=== PATIENT | female | born 1965 | race Caucasian/White ===

== ENCOUNTER 2020-01-03 01:38 | Outpatient (CLI) | payer BC, SELFPAY ==
[2020-01-03 18:20] LABS: SARS-CoV-2 RNA PCR Negative
== END 2020-01-03 01:39 | disposition home or self-care (01) ==
LOC: ANHCOVIDDT 01:38
PROVIDERS: PCP Family Medicine; Visit Provider Internal Medicine Gastroenterology
DX: Z01.812 Encounter for preprocedural laboratory examination (principal); Z11.59 Encounter for screening for other viral diseases
CPT/HCPCS: 87635; C9803; U0003

== ENCOUNTER 2020-01-05 01:13 | Day surgery (SDC) | payer BC, SELFPAY ==
[2019-12-29 12:28] VITALS: BMI 32.8
[2020-01-05 06:47] VITALS: BP 127/76; PULSE 84; RESP 18; TEMP 37.1; O2SAT 100
[2020-01-05] MEDS: LACTATED RINGERS 1,000 ML 150 ML IV CONT (07:21)
--- NOTE | 2020-01-05 07:41 | WPDANESEPPF ---
Anes - Initial Pre Proc Eval Procedure: Operation Date: 01/05/20 08:00 Proposed Procedures p Screening Colonoscopy - Harman Barr MD Date/Time: 01/05/20 07:41 Surgeon: Harman Barr MD Pre Op Diagnosis: Neoplasm Screening Patient Data Age: 54 Gender: F Height: 5 ft 7 in Weight: 98.1 kg Last Vital Signs Temp 98.7 F 01/05/20 06:47 Pulse 84 01/05/20 06:47 Resp 18 01/05/20 06:47 BP 127/76 01/05/20 06:47 Pulse Ox 100 01/05/20 06:47 Allergies Allergy/AdvReac Type Severity Reaction Status Date / Time codeine Allergy Unknown Swelling Verified 01/05/20 06:45 of Lip/Tongue/Throat meperidine Allergy Unknown Seizure Verified 01/05/20 06:45 Home Medications Medication Instructions Recorded Confirmed Type Bifidobacterium infantis [Align] 10.5 mg PO DAILY 12/29/19 01/05/20 History brimonidine 1 drp RIGHTEYE BID 12/29/19 01/05/20 History dorzolamide-timolol 1 drp OPHTHALMIC (EYE) BID 12/29/19 01/05/20 History duloxetine 30 mg PO BID 12/29/19 01/05/20 History eletriptan 40 mg PO DAILY 12/29/19 01/05/20 History erenumab-aooe [Aimovig 140 mg SUBCUT MONTHLY 12/29/19 01/05/20 History Autoinjector] ketorolac 1 drp OPHTHALMIC (EYE) BID 12/29/19 01/05/20 History meloxicam 15 mg PO DAILY 12/29/19 01/05/20 History methylphenidate HCl 40 mg PO BID 12/29/19 01/05/20 History topiramate 100 mg PO DAILY 12/29/19 01/05/20 History Patient hx anesthesia problems: none Family hx anesthesia problems: none PMFSH Past Medical History Medical History (Updated 01/05/20 @ 07:41 by Vasquez Garza MD) Hypothyroid Migraine Anes - Eval Final PreProcedure Day of Procedure 01/05/20 07:41 Patient weight: obese Heart: regular rate and rhythm Lungs: clear to auscultation Airway: Mallampati scale class III Neurological: alert and oriented Last oral intake: >/= 8 hours ASA classification: II Anesthetic plan: proceed Anesthesia type and monitoring: general GIVS and standard monitoring Informed Consent: The patient's anesthetic plan and its attendant risks and benefits were discussed with the patient/family/POA. Questions were solicited and answers provided to the satisfaction of the patient/family/POA.
--- NOTE | 2020-01-05 07:44 | WPDGICN ---
Assessment and Plan Assessment and plan (1) Colonoscopy planned: Status: Acute Assessment and Plan: Plan is for screening colonoscopy. High-fiber diet advised diarrhea stools appear to be consistent with irritable bowel syndrome. Further recommendations will be given after endoscopy. (2) Encounter for screening for colorectal malignant neoplasm: Code(s): Z12.11 - Encounter for screening for malignant neoplasm of colon; Z12.12 - Encounter for screening for malignant neoplasm of rectum Status: Acute GI Consult Note Consult date/time: 01/05/20 07:44 HPI: Daniela Shaw is a 54 year old female Seen in evaluation at the request of WILLEM Arce. Patient presents for neoplasia screening colonoscopy. Patient's current weight appetite bowel movements are normal. She denies abdominal pain. She denies any bleeding. She does note occasional diarrhea stools. Family history is significant her daughter has celiac disease. There is no family history of colon or rectal disease. Patient's past medical history is significant for psoriasis purposes. She has a very distant history of a seizure. Review of Systems Review of Systems: All systems reviewed & are unremarkable except as noted in HPI and below PMFSH Past Medical History Medical History Hypothyroid Migraine Meds Home Medications and Allergies Home Medications Medication Instructions Recorded Confirmed Type Bifidobacterium infantis [Align] 10.5 mg PO DAILY 12/29/19 01/05/20 History brimonidine 1 drp RIGHTEYE BID 12/29/19 01/05/20 History dorzolamide-timolol 1 drp OPHTHALMIC (EYE) BID 12/29/19 01/05/20 History duloxetine 30 mg PO BID 12/29/19 01/05/20 History eletriptan 40 mg PO DAILY 12/29/19 01/05/20 History erenumab-aooe [Aimovig 140 mg SUBCUT MONTHLY 12/29/19 01/05/20 History Autoinjector] ketorolac 1 drp OPHTHALMIC (EYE) BID 12/29/19 01/05/20 History meloxicam 15 mg PO DAILY 12/29/19 01/05/20 History methylphenidate HCl 40 mg PO BID 12/29/19 01/05/20 History topiramate 100 mg PO DAILY 12/29/19 01/05/20 History Allergies Allergy/AdvReac Type Severity Reaction Status Date / Time codeine Allergy Unknown Swelling Verified 01/05/20 06:45 of Lip/Tongue/Throat meperidine Allergy Unknown Seizure Verified 01/05/20 06:45 Vital Signs Vital Signs - 24 hr 01/05/20 06:47 Temperature 98.7 F Pulse Rate 84 Respiratory Rate 18 Blood Pressure 127/76 Pulse Oximetry 100 Exam Narrative: Exam Narrative: Physical exam reveals patient to be alert. Somewhat anxious. Vital signs are stable. HEENT exam unremarkable. Lungs are clear to auscultation and percussion. Heart is without murmur or extra sounds. Abdominal exam bowel sounds are present soft nontender with no hepatosplenomegaly. Digital external rectal exam normal.
[2020-01-05] MEDS: SIMETHICONE ORAL SUSPENSION 20 MG/0.3 ML 30 ML BOTTLE 0.6 ML IRRIGATION (08:05)
[2020-01-05 08:10] VITALS: BP 114/72; PULSE 77; RESP 12; O2SAT 100
[2020-01-05 08:20] VITALS: BP 118/74; PULSE 76; RESP 16; O2SAT 100
[2020-01-05 08:30] VITALS: BP 127/91; PULSE 76; RESP 16; O2SAT 100
== END 2020-01-05 08:45 | disposition home or self-care (01) ==
PROVIDERS: PCP Family Medicine; Visit Provider Internal Medicine Gastroenterology
PROC: 0DJD8ZZ Inspection of Lower Intestinal Tract, Via Natural or Artificial Opening Endoscopic (ICD-10-PCS; CPT 45378; principal; 2020-01-05 08:00)
DX: Z12.11 Encounter for screening for malignant neoplasm of colon (principal); E03.9 Hypothyroidism, unspecified; E66.9 Obesity, unspecified; Z68.33 Body mass index [BMI] 33.0-33.9, adult
CPT/HCPCS: 45378; J2704; J7120

== ENCOUNTER 2020-08-21 21:51 | Observation (INO) | payer BC, SELFPAY ==
--- NOTE | ~2020-08-21 | XR_ITS ---
EXAMINATION: XR abdomen/kub 1V DATE: 08/22/2020 01:20 INDICATION: Left flank pain. Kidney stone. TECHNIQUE: A supine view of the abdomen on 2 radiographs was obtained. COMPARISON: CT dated 08/22/2020 and sacrum radiographs dated 05/12/2010 FINDINGS: 5 x 4 mm stone at the distal left ureter near the ureterovesicular junction. Surrounding unchanged pa ttern of phleboliths in the pelvis. A couple 2-3 mm stones project over both the left and right kidne ys, partially obscured by stool in the colon. Cholecystectomy clips in the right upper quadrant. No d ilated loops of bowel to suggest obstruction. IMPRESSION: 1. Bilateral nephrolithiasis with 5 performed with stone at the distalmost left ureter. Reviewed, dictated and finalized at location A.
--- NOTE | ~2020-08-21 | CT_ITS ---
EXAMINATION: CT abdomen pelvis wo con DATE: 08/22/2020 01:13 INDICATION: Left flank pain TECHNIQUE: Computed tomography (CT) of the abdomen and pelvis was performed without intravenous contr ast. The dose-length product was 1258.34 mGy-cm. Automated exposure control and iterative reconstruct ion technique were employed. COMPARISON: KUB dated 08/22/2020. FINDINGS: Lung bases are unremarkable. Heart size is normal. No significant pleural or pericardial ef fusion. No significant vascular abnormality. No lymphadenopathy. There is a 6.4 mm distal left ureteral stone near the UVJ with mild hydronephrosis. There are nonobst ructing bilateral renal stones. No right hydronephrosis. Nonobstructive bowel gas pattern. Small hiat al hernia. Status post cholecystectomy. Normal appendix. No free air or free fluid. No acute osseous abnormality. IMPRESSION: 1. Distal left ureteral stone near the UVJ measuring 6.4 mm with mild hydronephrosis. 2: Bilateral nephrolithiasis. Reviewed, dictated and finalized at location D. IMPRESSION: 1. Distal left ureteral stone near the UVJ measuring 6.4 mm with mild hydroneph rosis. 2: Bilateral nephrolithiasis.
--- NOTE | ~2020-08-21 | XR_ITS ---
EXAMINATION: XR retrograde pyelo w/stent LT EXAM DATE: 08/22/2020 14:59 INDICATION: Left distal ureteral stone, obstructive nephropathy. TECHNIQUE: Fluoroscopy used during XR retrograde pyelo w/stent LT performed by Dr. Bienvenido truong MD. Total fluoroscopic time of 0.3 minutes. A total of 8 images obtained for the exam. The D AP for this procedure was 331 radcm2. Cine run(s) available for review. FINDINGS: Left ureter was cannulated, injected. Mild left hydroureteronephrosis. A double-J stent wa s placed. Correlate with procedure note. IMPRESSION: Fluoroscopy used during XR retrograde pyelo w/stent LT. Reviewed, dictated and finalized at location A.
[2020-08-21 22:15] VITALS: BP 141/91; PULSE 87; RESP 16; TEMP 36.8; O2SAT 99
[2020-08-21 22:29] LABS: Basophils Percent Auto 0.4 % (0.2-1.2); Eosinophils Absolute Auto 0.2 K/mm3 (0-0.3); Eosinophils Percent Auto 1.9 % (0-4.4); Hematocrit 43.9 % (37.0-47.0); Hemoglobin 14.9 g/dL (12.0-15.0); Immature Granulocyte Absolute 0.06 K/mm3 (0.00-0.031); Immature Granulocyte Percent A 0.5 % (0-0.5); Lymphocytes Absolute Auto 1.59 K/mm3 (0.9-3.2); Mean Corpuscular HGB Conc 33.9 g/dl (32-36); Mean Corpuscular Hemoglobin 31.2 pg (26-34); Mean Platelet Volume 9.5 fl (7.4-10.4); Monocytes Absolute Auto 0.6 K/mm3 (0.1-0.6); Monocytes Percent Auto 5.4 % (2.6-8.5); Neutrophils Absolute Auto 8.9 K/mm3 (1.3-6.7); Neutrophils Percent Auto 77.8 % (45.5-73.1); Platelet Count Result 302 k/mm3 (150-375); Red Blood Count 4.77 M/mm3 (4.2-5.4); White Blood Count 11.4 K/mm3 (4.5-10.0)
[2020-08-21 22:45] LABS: Anion Gap 9 mmol/L (8-16); Blood Urea Nitrogen 21 mg/dL (7-17); Calcium 9.1 mg/dL (8.4-10.2); Carbon Dioxide 20 mmol/L (22-30); Chloride 112 mmol/L (98-107); Estimated CRCL calculation 73 ml/min; Estimated Glomerular Filt Rate > 60; Glucose 150 mg/dL (65-105); Potassium 3.8 mmol/L (3.4-5.0); Sodium 141 mmol/L (137-145)
[2020-08-21 22:59] LABS: Add Urine Microscopic? YES; Appearance Urine Cloudy (Clear); Bacteria Urine Trace /hpf; Bilirubin Urine 1+ (Negative); Blood Urine 3+ (Negative); Color Urine Yellow (Yellow); Glucose Urine UA Negative (Negative); Ketones Urine Negative (Negative); Leukocyte Esterase Ur Negative LEU/UL (Negative); Mucus Urine Rare /lpf; Nitrate Urine Negative (Negative); Protein Urine 1+ mg/dL (Negative); RBC Urine >75 /hpf (0-2); Squamous Epithelial Cell Urine Rare /hpf (Few); WBC Urine 0-3 /hpf
[2020-08-22] VITALS (17 sets, daily range): BP systolic 99–164; BP diastolic 53–105; PULSE 72–122; RESP 10–20; TEMP 36.3–37.2; O2SAT 95–100; BMI 35.4
--- NOTE | 2020-08-22 02:11 | ED.ABDPAIN ---
HPI - Abdominal Pain General Chief Complaint: Abdominal Pain Stated Complaint: Poss kidney stone-left flank pain Time Seen by Provider: 08/22/20 00:47 Source: patient and family Mode of arrival: ambulatory Limitations: no limitations History of Present Illness HPI narrative: 51-year-old with no major medical problems here with complaints of left-sided flank pain radiating into her left lower abdomen for past few days. Patient states that she went to urgent care few days ago was told he had kidney stones but no imaging was done. However this evening her pain intensified. She also complains of nausea and vomiting. She denies any fever or chills. Denies any blood in the urine. MD elicited complaint: abdominal pain (left lower abd) and flank pain (left) Pertinent past history: none Onset (ago): day(s) (2) Pain Consistency: constant Location: LLQ and L flank Severity: severe Quality: stabbing and aching Radiation: LLQ Relieving factors: nothing Related Data Home Medications Medication Instructions Recorded Confirmed Bifidobacterium infantis [Align] 10.5 mg PO DAILY 12/29/19 01/05/20 brimonidine 1 drp RIGHTEYE BID 12/29/19 01/05/20 dorzolamide-timolol 1 drp OPHTHALMIC (EYE) BID 12/29/19 01/05/20 duloxetine 30 mg PO BID 12/29/19 01/05/20 eletriptan 40 mg PO DAILY 12/29/19 01/05/20 erenumab-aooe [Aimovig 140 mg SUBCUT MONTHLY 12/29/19 01/05/20 Autoinjector] ketorolac 1 drp OPHTHALMIC (EYE) BID 12/29/19 01/05/20 meloxicam 15 mg PO DAILY 12/29/19 01/05/20 methylphenidate HCl 40 mg PO BID 12/29/19 01/05/20 topiramate 100 mg PO DAILY 12/29/19 01/05/20 Allergies Allergy/AdvReac Type Severity Reaction Status Date / Time codeine Allergy Unknown Swelling Verified 08/21/20 21:51 of Lip/Tongue/Throat meperidine Allergy Unknown Seizure Verified 08/21/20 21:51 Review of Systems Review of Systems: All systems reviewed & are unremarkable except as noted in HPI and below Constitutional: Constitutional: Reports no additional constitutional complaints Eyes: Eyes: Reports no additional eye complaints ENT: Reports system reviewed and no additional complaints, except as documented Cardiovascular: Cardiovascular: Reports no additional cardiovascular complaints Respiratory: Respiratory: Reports no additional respiratory complaints Gastrointestinal: Gastrointestinal: Reports as per HPI Genitourinary: Genitourinary: Reports as per HPI Musculoskeletal: Musculoskeletal: Reports no additional musculoskeletal complaints Integumentary/Breasts: Skin/Breast: Reports system reviewed and no additional complaints, except as docu PMFSH Past Medical History Medical History (Updated 08/22/20 @ 02:19 by Anibal Major MD) Hypothyroid Migraine Exam Narrative: Exam Narrative: GENERAL: Well-appearing, well-nourished, and in moderate distresssec to pain HEAD: Normocephalic, atraumatic. EYES: PERRLA and EOMI. ENT: Nares clear, no rhinorrhea or epistaxis. Mucous membranes moist. NECK: Supple. CHEST: Clear to auscultation. No respiratory distress. HEART: Regular rate and rhythm. No murmur heard. Normal peripheral pulses. ABDOMEN: Soft, mild tenderness in the left lower abd , nondistended, normal active bowel sounds. EXTREMITIES: Normal range of motion. No edema. SKIN: Warm, dry, no rash. NEURO: No focal deficits. Alert and oriented x3. PSYCH: Normal mood and affect. Course Course Emergency Course: Patient still continues to be in pain I have given an additional IV Dilaudid. I did discuss CT findings with the patient and the family. Will admit her for pain control and consult urology in the morning. Vital Signs Vital signs: Vital Signs Temperature 36.8 C 08/21/20 22:15 Pulse Rate 87 08/21/20 22:15 Respiratory Rate 16 08/21/20 22:15 Blood Pressure 141/91 H 08/21/20 22:15 Pulse Oximetry 99 08/21/20 22:15 Temperature 36.8 C 08/21/20 22:15 Pulse Rate 87 08/21/20 22:15 Respiratory Rate 16 07/25
[2020-08-22] MEDS: HYDROmorphone HCL INJ (*CRX) 1 MG/ML SYR IV PUSH (02:18)
[2020-08-22] MEDS: TAMSULOSIN HCL 0.4 MG CAPSULE PO (02:50)
[2020-08-22] MEDS: SODIUM CHLORIDE 0.9% IV 1,000 ML 125 ML IV CONT ×2 (03:14→11:34)
--- NOTE | 2020-08-22 03:31 | ADMGEN ---
This patient, Daniela Shaw, was admitted to 3 Med Surg Room 309-01. Patient/family oriented to hospital policies and general routines including ID bracelet, bed and alarms, visiting hours, pain management, procedures, bathroom and other care routines, personal items, smoking policy, room service/diet, and visiting hours. Information on how to activate the Rapid Response Team has been discussed. Patient/Family are encouraged to report perceived risks to care and to ask questions if they do not understand what they are told or what they should do.
--- NOTE | 2020-08-22 08:27 | WPDURCON ---
Assessment and Plan Assessment and plan (1) Ureterolithiasis: Code(s): N20.1 - Calculus of ureter Status: Acute Assessment and Plan: Plan for cystoscopy, left retrograde pyelogram, left ureteroscopy with stone extraction, possible holmium laser, stent placement. Discussed with patient. Risks and complications were discussed. Urology Consult Note HPI Date Seen: 08/22/20 Requesting Physician: Page Blas PA-C Primary Care Provider: Fabio Arvizu MD Consult Narrative Narrative: Daniela Shaw is a 55 year old female who presented to the emergency room with onset of left flank pain radiating to her left groin. Patient then any fevers. Patient denies any prior history of stones. Evaluation in emergency room revealed a 5-7 mm distal left ureteral calculus. Patient was admitted for pain control. Review of Systems Review of Systems: All systems reviewed & are unremarkable except as noted in HPI and below PMFSH Past Medical History Medical History Hypothyroid Migraine Family History Family History Mother Sarcoma Glaucoma Diabetes mellitus Osteoporosis Father Glaucoma Cerebrovascular accident Hypothyroidism Allergies Social History Social History Smoking status: Never smoker Alcohol intake: never Substance use: never Substance use type: does not use Spiritual care concerns: No Meds Home Medications and Allergies Home Medications Medication Instructions Recorded Confirmed Type Bifidobacterium infantis [Align] 10.5 mg PO DAILY 12/29/19 08/22/20 History brimonidine 1 drp RIGHTEYE BID 12/29/19 08/22/20 History dorzolamide-timolol 1 drp EACH EYE BID 12/29/19 08/22/20 History duloxetine 30 mg PO BID 12/29/19 08/22/20 History eletriptan 40 mg PO DAILY PRN 12/29/19 08/22/20 History erenumab-aooe [Aimovig 140 mg SUBCUT MONTHLY 12/29/19 08/22/20 History Autoinjector] ketorolac 1 drp RIGHT EYE BID 12/29/19 08/22/20 History meloxicam 15 mg PO DAILY PRN 12/29/19 08/22/20 History methylphenidate HCl 40 mg PO BID 12/29/19 08/22/20 History topiramate 100 mg PO DAILY 12/29/19 08/22/20 History topiramate 150 mg PO QPM 08/22/20 08/22/20 History Allergies Allergy/AdvReac Type Severity Reaction Status Date / Time codeine Allergy Unknown Swelling Verified 08/21/20 21:51 of Lip/Tongue/Throat meperidine Allergy Unknown Seizure Verified 08/21/20 21:51 Vital Signs Vital Signs - 24 hr 08/21/20 22:15 08/22/20 02:20 08/22/20 02:38 Temperature 36.8 C Pulse Rate 87 76 78 Respiratory Rate 16 18 18 Blood Pressure 141/91 H 154/92 H 164/93 H Pulse Oximetry 99 95 97 08/22/20 03:10 08/22/20 06:00 08/22/20 08:00 Temperature 36.4 C 36.3 C L 36.3 C L Pulse Rate 89 93 90 Respiratory Rate 16 16 16 Blood Pressure 150/89 H 136/72 130/69 Pulse Oximetry 100 100 100 Exam Const: General: cooperative Eyes: General: appearance normal, both eyes and all related structures Chest: Chest palpation & inspection: normal inspection of the chest Resp: Effort & Inspection: normal respiratory effort Cardio: Rate: regular rate GI: Inspection: normal to inspection Results Labs CBC & Chem 7: 08/21/20 22:24 08/21/20 22:24 Labs: Short CBC 08/21/20 Range/Units 22:24 WBC 11.4 H (4.5-10.0) K/mm3 Hgb 14.9 (12.0-15.0) g/dL Hct 43.9 (37.0-47.0) % Plt Count 302 (150-375) k/mm3 BMP 08/21/20 22:24 Sodium 141 Potassium 3.8 Chloride 112 H Carbon Dioxide 20 L BUN 21 H Creatinine 0.90 Glucose 150 H Calcium 9.1 Urine 08/21/20 Range/Units 22:44 Urine Color Yellow (Yellow) Urine Appearance Cloudy H (Clear) Urine pH 6.0 (5.0-9.0) Ur Specific [place] 1.020 (1.001-1.035) Urine Protein 1+ H (Negative) m
--- NOTE | 2020-08-22 08:31 | WPDHPUPDATE1 ---
History and Physical Update Update Date/Time: 08/22/20 08:31 History and Physical has been reviewed, including an updated exam of the patient. There are NO changes in the patient's condition. Risks, benefits, and alternatives have been discussed and questions answered. Patient agrees to proceed with procedure.
--- NOTE | 2020-08-22 09:40 | PM.IMHP ---
H&P: HPI History of Present Illness Date/Time: 08/22/20 09:40 Chief Complaint: Left flank pain Narrative: Date of admission: 08/22/2020 Date of service: 08/22/2020 Daniela Shaw is a 55-year-old female with a history of chronic migraines, IBS, and fibromyalgia who presented to the emergency department from home 08/22/2020 with complaints of left-sided flank pain. Her pain began 4 days prior with intermittent left-sided stabbing pain which radiated to the lower back. She had associated nausea. She denied any urinary symptoms. On 08/20, her pain worsened, therefore she went to the urgent care for evaluation. At that time, a UA was done and she was told she likely had a kidney stone based on microscopic hematuria. She was prescribed a muscle relaxer, which did improve her pain. However, last night, her pain intensified to 10/10, therefore she proceeded to the emergency department. She had 3 episodes of emesis at that time. Upon presentation to the ED, her vital signs were stable, she had mild leukocytosis, and urine showed 3+ blood. CT abdomen/pelvis showed distal left ureteral stone at the UVJ measuring 6.4 mm with mild hydronephrosis as well as bilateral nephrolithiasis. She is being admitted to the hospitalist service for further evaluation and management. At this time, her pain is improved at 2/10. She denies any nausea or vomiting. She denies dysuria, hematuria, urgency, or frequency. She is being admitted for observation. Supervising physician for this history and physical is Dr. Amador Pack. Review of Systems Review of Systems: Narrative: All systems reviewed with pertinent positives and negatives as per HPI. She endorses a mild headache, which she states is at baseline for her. She denies migraine. She complains of numbness and tingling in the hands and feet which is chronic and she relates this to Topamax use. She denies dizziness or lightheadedness. Denies feeling weak. She reports chronic fatigue and is in the process of being worked up for narcolepsy. Last bowel movement was yesterday. Denies diarrhea or constipation. No fevers or chills. Denies shortness breath, cough, or chest pain. [facility] Past Medical History Medical History (Updated 03/30/21 @ 10:09 by Page Blas PA-C) Bilateral nephrolithiasis Fibromyalgia Glaucoma Hypothyroid Irritable bowel syndrome Migraine Retinal detachment Surgical History Surgical History (Updated 08/22/20 @ 09:55 by Page Blas PA-C) History of detached retina repair History of glaucoma tube shunt procedure Family History Family History Mother Sarcoma Glaucoma Diabetes mellitus Osteoporosis Father Glaucoma Cerebrovascular accident Hypothyroidism Allergies Social History Social History (Updated 08/22/20 @ 10:02 by Page Blas PA-C) Social History: Ms. Shaw lives at home with her . She is independent in her ADLs. She works from home. Her PCP is Dr. Arvizu. She designates her as her surrogate decision maker and would like to be a full code. Smoking status: Never smoker Alcohol intake: never Substance use: never Substance use type: does not use Living arrangements: with family Spiritual care concerns: No Meds Home Medications and Allergies Home Medications Medication Instructions Recorded Confirmed Type Bifidobacterium infantis [Align] 10.5 mg PO DAILY 12/29/19 08/22/20 History brimonidine 1 drp RIGHTEYE BID 12/29/19 08/22/20 History dorzolamide-timolol 1 drp EACH EYE BID 12/29/19 08/22/20 History duloxetine 30 mg PO BID 12/29/19 08/22/20 History eletriptan 40 mg PO DAILY PRN 12/29/19 08/22/20 History erenumab-aooe [Aimovig 140 mg SUBCUT MONTHLY 12/29/19 08/22/20 History Autoinjector] ketorolac 1 drp RIGHT EYE BID 12/29/19 08/22/20 History meloxicam 15 mg PO DAILY PRN 12/29/19 08/22/20 History methylphenidate HCl 40
[2020-08-22 10:21] LABS: Hematocrit 40.5 % (37.0-47.0); Hemoglobin 13.7 g/dL (12.0-15.0); Mean Corpuscular HGB Conc 33.8 g/dl (32-36); Mean Corpuscular Hemoglobin 31.4 pg (26-34); Mean Corpuscular Volume 92.9 fl (80-100); Mean Platelet Volume 9.6 fl (7.4-10.4); Platelet Count Result 286 k/mm3 (150-375); Red Blood Count 4.36 M/mm3 (4.2-5.4); Red Cell Distribution Width 12.9 % (11.5-14.5); White Blood Count 10.7 K/mm3 (4.5-10.0)
[2020-08-22 10:33] LABS: Potassium 4.3 mmol/L (3.4-5.0)
[2020-08-22 10:35] LABS: Anion Gap 2 mmol/L (8-16); Blood Urea Nitrogen 16 mg/dL (7-17); Calcium 8.8 mg/dL (8.4-10.2); Carbon Dioxide 26 mmol/L (22-30); Chloride 114 mmol/L (98-107); Estimated CRCL calculation 73 ml/min; Estimated Glomerular Filt Rate > 60; Glucose 104 mg/dL (65-105); Sodium 142 mmol/L (137-145)
[2020-08-22] MEDS: BRIMONIDINE TARTRATE 0.2% OP SOLN 5 ML BTL 1 DROP RIGHT EYE ×2 (11:32→17:52)
[2020-08-22] MEDS: KETOROLAC 0.5% OP SOLN 5 ML BOTTLE 1 DROP RIGHT EYE ×2 (11:33→17:53)
[2020-08-22] MEDS: DORZOLAMIDE HCL 2% OPHTH DROPS 1 DROP EACH EYE (11:33)
[2020-08-22] MEDS: TIMOLOL MALEATE 0.5% OP SOLN 5 ML BOTTLE 1 DROP EACH EYE (11:34)
[2020-08-22] MEDS: HYDROmorphone HCL INJ (*CRX) 1 MG/ML SYR 0.5 MG IV PUSH (11:35)
--- NOTE | 2020-08-22 13:05 | PC.NURSE ---
1205MELANA MARIA HENSLEY CALLED TO TELL ME WHEN PT IS GOING TO OR. OFFERED REPORT, SHE REFUSED JUST SEND THE S BAR.
--- NOTE | 2020-08-22 13:25 | PC.NURSE ---
1250 GAVE VERBAL REPORT TO RONEN Mansfield ASKED IF ANY QUESTION STATES NO JUST SEND DOWN THE SBAR
--- NOTE | 2020-08-22 13:38 | PC.NURSE ---
9075 CALLED TO [facility] SPOKE WITH MARLO REGARDING 309 SHE WILL TELL RONEN THAT PT DOWN'T HAVE SZ AND SHE SHAKES UPON AWAKENING FROM ANESTHESIA FROM BEING COLD.
[2020-08-22] MEDS: LACTATED RINGERS 1,000 ML 30 ML IV CONT ×2 (14:05→15:26)
--- NOTE | 2020-08-22 14:07 | WPDANESEPPF ---
Anes - Initial Pre Proc Eval Procedure: Operation Date: 08/22/20 16:00 Proposed Procedures p Cystoscopy,Left Ureteroscopy,Left Retrograde Pyelogram,Left Stone Extraction,Possible Holmium Laser,Possible Stent Placement - Bienvenido Howe MD Date/Time: 08/22/20 14:07 Surgeon: Page Blas PA-C Pre Op Diagnosis: left ureterolithiasis Patient Data Age: 55 Gender: F Height: 5 ft 6 in Weight: 99.6 kg Last Vital Signs Temp 97.5 F L 08/22/20 12:12 Pulse 86 08/22/20 12:12 Resp 16 08/22/20 12:12 BP 132/77 08/22/20 12:12 Pulse Ox 100 08/22/20 12:12 Allergies Allergy/AdvReac Type Severity Reaction Status Date / Time codeine Allergy Unknown Swelling Verified 08/21/20 21:51 of Lip/Tongue/Throat meperidine Allergy Unknown Seizure Verified 08/21/20 21:51 Home Medications Medication Instructions Recorded Confirmed Type Bifidobacterium infantis [Align] 10.5 mg PO DAILY 12/29/19 08/22/20 History brimonidine 1 drp RIGHTEYE BID 12/29/19 08/22/20 History dorzolamide-timolol 1 drp EACH EYE BID 12/29/19 08/22/20 History duloxetine 30 mg PO BID 12/29/19 08/22/20 History eletriptan 40 mg PO DAILY PRN 12/29/19 08/22/20 History erenumab-aooe [Aimovig 140 mg SUBCUT MONTHLY 12/29/19 08/22/20 History Autoinjector] ketorolac 1 drp RIGHT EYE BID 12/29/19 08/22/20 History meloxicam 15 mg PO DAILY PRN 12/29/19 08/22/20 History methylphenidate HCl 40 mg PO BID 12/29/19 08/22/20 History topiramate 100 mg PO DAILY 12/29/19 08/22/20 History topiramate 150 mg PO QPM 08/22/20 08/22/20 History Laboratory Tests 08/21/20 08/21/20 08/21/20 22:24 22:24 22:44 WBC 11.4 K/mm3 H K/mm3 (4.5-10.0) RBC 4.77 M/mm3 M/mm3 (4.2-5.4) Hgb 14.9 g/dL g/dL (12.0-15.0) Hct 43.9 % % (37.0-47.0) MCV 92.0 fl fl (80-100) MCH 31.2 pg pg (26-34) MCHC 33.9 g/dl g/dl (32-36) RDW 13.0 % % (11.5-14.5) Plt Count 302 k/mm3 k/mm3 (150-375) MPV 9.5 fl fl (7.4-10.4) Immature Gran % (Auto) 0.5 % % (0-0.5) Neut % (Auto) 77.8 % H % (45.5-73.1) Lymph % (Auto) 14.0 % L % (18.3-44.2) [place] % (Auto) 5.4 % % (2.6-8.5) Eos % (Auto) 1.9 % % (0-4.4) Baso % (Auto) 0.4 % % (0.2-1.2) Lymph # (Auto) 1.59 K/mm3 K/mm3 (0.9-3.2) [place] # (Auto) 0.6 K/mm3 K/mm3 (0.1-0.6) Eos # (Auto) 0.2 K/mm3 K/mm3 (0-0.3) Baso # (Auto) 0.0 K/mm3 K/mm3 (0.0-0.1) Abs Immat Gran (auto) 0.06 K/mm3 H K/mm3 (0.00-0.031) Absolute Neuts (auto) 8.9 K/mm3 H K/mm3 (1.3-6.7) Absolute Nucleated RBC 0.0 K/mm3 K/mm3 (0.0-0.012) Nucleated RBC % 0.0 % % (0.0-0.2) Sodium 141 mmol/L mmol/L (137-145) Potassium 3.8 mmol/L mmol/L (3.4-5.0) Chloride 112 mmol/L H mmol/L (98-107) Carbon Dioxide 20 mmol/L L mmol/L (22-30) Anion Gap 9 mmol/L mmol/L (8-16) BUN 21 mg/dL H mg/dL (7-17) Creatinine 0.90 mg/dL mg/dL (0.7-1.0) Estim Creat Clear Calc 73 ml/min ml/min Estimated GFR > 60 (59 - ) Glucose 150 mg/dL H mg/dL (65-105) Calcium 9.1 mg/dL mg/dL (8.4-10.2) Urine Color Yellow (Yellow) Urine Appearance Cloudy H (Clear) Urine pH 6.0 (5.0-9.0) Ur Specific [place] 1.020 (1.001-1.035) Urine Protein 1+ mg/dL H mg/dL (Negative) Urine Glucose (UA) Negative mg/dL mg/dL (Negative) Urine Ketones Negative mg/dL mg/dL (Negative) Ur Blood (Man) 3+ H (Negative) Urine Nitrate Negative (Negative) Urine Bilirubin 1+ H (Negative) Urine Urobilinogen 4.0 mg/dL H mg/dL (<2.0) Leukocyte Esterase Rfl Negative JARETT/UL JARETT/UL (Negative) Urine RBC >75 /hpf H /h
[2020-08-22] MEDS: ceFAZolin 2 GM/D5W 50 ML 2 GM/50 ML BAG IVPB (14:55)
--- NOTE | 2020-08-22 14:55 | P.OP_ITS ---
Procedure Note - Detailed Date of procedure: 08/22/20 Pre-op diagnosis: left ureterolithiasis Post-op diagnosis: same Procedure performed: Cystoscopy, left retrograde pyelogram, left ureteroscopy with stone extraction, left ureteral stent placement 4.8 Moroccan contour Description of procedure: Patient is taken the operative suite and correctly identified. Once anesthesia was obtained she was placed in dorsal lithotomy position and prepped and draped usual sterile fashion. Twenty-two Moroccan scope was inserted the bladder. There is no tumors noted. Left ureteral orifice was cannulated with a guidewire. The ureter was dilated with an 8/10 dilator. Rigid ureteral scope was then inserted. The stone was visualized. Stone was grasped with an escape basket. This was sent for analysis. Reinspection revealed no residual stones. Pyelogram was then performed to confirm placement of the stent. 4.8 Moroccan contour stent was then placed with the proximal end coiled in the renal pelvis and the distal in the bladder. Patient is taken recovery room stable condition. She will follow up in a week's time for stent removal. Anesthesia: GLMA Surgeon: Bienvenido Howe MD Drains: Yes Packing: No Pathology: yes Complications: No immediate complications Condition: stable Disposition: PACU
[2020-08-22] MEDS: LIDOCAINE HCL 2% GEL UROJET 10 ML PKG MUCOUS MEM (14:57)
--- NOTE | 2020-08-22 16:01 | SUR.PHASEI ---
PT AWAKE, EATING ICE CHIPS
--- NOTE | 2020-08-22 16:24 | PM.DS ---
DS: Admitting Diagnosis Admitting Diagnosis Admitting Diagnosis: Ureteral stone DS: Discharge Diagnosis Discharge Diagnosis (1) Ureterolithiasis: Code(s): N20.1 - Calculus of ureter Status: Acute Assessment and Plan: 6.4 mm distal left ureteral stone near the UVJ evident on CT abdomen/pelvis. UA with 3+ blood. Renal function was appropriate. She underwent cystoscopy and left ureteroscopy with stone extraction and stent placement by Dr. Howe on 08/22/2020. She tolerated the procedure well. She will need to follow-up with Dr. Howe in 1 week for stent removal. (2) Leukocytosis: Code(s): D72.829 - Elevated white blood cell count, unspecified Status: Acute Assessment and Plan: Likely reactive secondary to stone. No signs or symptoms to suggest underlying infection. UA not suggestive of urinary tract infection. She remained afebrile. Leukocytosis improved. (3) Migraine: Qualifiers: Migraine type: with aura Status migrainosus presence: without status migrainosus Intractability: not intractable Qualified Code(s): G43.109 - Migraine with aura, not intractable, without status migrainosus Code(s): G43.909 - Migraine, unspecified, not intractable, without status migrainosus Status: Acute Assessment and Plan: Chronic. No acute issues at this time. Eletriptan and topamax were held while NPO but will be resumed upon discharge DS: Summary Hospital Course Reason for hospitalization: Left flank pain Hospital Course: Date of admission: 08/22/2020 Date of discharge: 08/22/2020 Daniela Shaw is a 55-year-old female with a history of chronic migraines, IBS, and fibromyalgia who presented to the emergency department from home 08/22/2020 with complaints of left-sided flank pain ongoing for 4 days with associated nausea and vomiting. Upon presentation to the emergency department, her vital signs were stable, she had mild leukocytosis, and urine showed 3+ blood. CT abdomen/pelvis showed distal left ureteral stone at the UVJ measuring 6.4 mm with mild hydronephrosis as well as bilateral nephrolithiasis. She was admitted to the hospitalist service for further evaluation and management and seen in consultation by Urology. Please see above for further details. She underwent stone extraction with left stent placement. Her pain improved following procedure. She will need to follow-up with urology in 1 week for stent removal. She began feeling much better and was eager for discharge home. Given her overall improvement, she was determined to no longer require inpatient care and felt to be stable for discharge. We discussed worrisome signs and symptoms for which to return and she was educated on her medications. She was discharged in hemodynamically stable condition on 08/22/2020. Status at Discharge Functional status at discharge: independent ambulation Overall status at discharge: patient is back to baseline Time Spent with Patient Time attestation: Total time spent providing and/or coordinating discharge services: 45 minutes Time spent: Greater than 30 minutes Exam Narrative: Exam Narrative: Ms. Shaw is a well-nourished, well-appearing 55-year-old female who is lying supine in bed. She appears comfortable and is in NARD. Neuro: awake, alert and oriented x4, speech clear, no focal neuro deficits noted HEENMT: normocephalic, atraumatic, EOMI, sclerae anicteric, moist oral mucosa, tongue midline, nares patent Neck: supple, no lymphadenopathy Respiratory: clear to auscultation bilaterally, nonlabored breathing Cardio: regular rate, regular rhythm with S1-S2 Abdomen: nondistended, normoactive bowel sounds, soft, slightly tender to palpation in LLQ, no rigidity or guarding Extremities: no edema, erythema, cyanosis, clubbing, or tenderness to palpation, DP pulses 2+ bilaterally Skin: no rashes or lesions, warm and dry Psych: appropriate mood and affect, judgment a
== END 2020-08-22 18:50 | disposition home health service (06) ==
LOC: ANHED 08-22 02:19 → ANH3MEDSUR 08-22 02:34
PROVIDERS: Urology; Admitting Provider Internal Medicine; Emergency Provider Family Medicine; PCP Family Medicine; Visit Provider Physician Assistant
PROC: (CPT 52352; principal; 2020-08-22 16:00)
DX: N13.2 Hydronephrosis with renal and ureteral calculous obstruction (principal); D72.829 Elevated white blood cell count, unspecified; E03.9 Hypothyroidism, unspecified; K58.9 Irritable bowel syndrome, unspecified; M79.7 Fibromyalgia; H40.9 Unspecified glaucoma; G43.909 Migraine, unspecified, not intractable, without status migrainosus; E66.9 Obesity, unspecified; Z68.35 Body mass index [BMI] 35.0-35.9, adult
CPT/HCPCS: 52332; 52352; 36415; 74018; 74176; 74420; 80048; 81001; 82365; 85025; 85027; 88300; 96361; 96374; 96375; 96376; 99285; A9270; C1769; C2617; G0378; J0690; J1100; J1170; J2405; J2704; J3010; J7030; J7120; Q9966

== ENCOUNTER → 2021-06-16 08:34 | Outpatient (CLI) | payer BC, SELFPAY ==
--- NOTE | ~2021-06-16 | XR_ITS ---
EXAMINATION: XR abdomen/kub 1V INDICATION: Bilateral nephrolithiasis TECHNIQUE: Supine views of the abdomen were obtained on 2 radiographs. COMPARISON: 08/12/2020 FINDINGS: The previously described left distal ureteral stone is no longer identified. Phleboliths ar e noted in the pelvis. No definite urolithiasis is identified. The bowel gas pattern is normal. There is a moderate volume of colonic stool. Cholecystectomy clips are noted. A calcified nodule of the le ft lung base is consistent with old granulomatous disease. IMPRESSION: 1. No definite urolithiasis identified. Reviewed, dictated and finalized at location F. EM SPECIALIST
== END ==
DX: N20.0 Calculus of kidney (principal)
CPT/HCPCS: 74018

== ENCOUNTER → 2021-08-03 13:59 | Outpatient (CLI) | payer BC, SELFPAY ==
--- NOTE | ~2021-08-03 | MM_ITS ---
EXAMINATION: MM screening karla BI w darlin HISTORY: Screening TECHNIQUE: Craniocaudal and mediolateral oblique 3-D tomosynthesis images were obtained and synthetic 2-D images were generated. CAD analysis was submitted and interpreted. COMPARISON: No prior mammogram is available for comparison at this institution. BREAST PARENCHYMAL COMPOSITION: There are scattered areas of fibroglandular density. FINDINGS: The right breast cysts within normal limits without focal mass, architectural distortion or cluster of calcifications to suggest malignancy. There is focal asymmetry in the lower outer quadran t of the left breast. IMPRESSION: 1. Focal left breast asymmetry. 2. Additional mammographic views and possible breast ultrasound are recommended. BI-RADS Category 0: Incomplete: Needs additional imaging evaluation. Reviewed, dictated and finalized at location A. L JUSTICE IMPRESSION: 1. Focal left breast asymmetry. 2. Additional mammographic views and possible breast ultrasound are recommended . BI-RADS Category 0: Incomplete: Needs additional imaging evaluation.
== END ==
DX: Z12.31 Encounter for screening mammogram for malignant neoplasm of breast (principal); R92.8 Other abnormal and inconclusive findings on diagnostic imaging of breast
CPT/HCPCS: 77063; 77067

== ENCOUNTER 2024-07-31 08:15 | Emergency (ER) | payer OTHER, SELFPAY ==
--- NOTE | 2024-07-31 08:17 | ED_ITS ---
HPI - URI/Sore Throat General Chief Complaint: Upper Respiratory Infection Stated Complaint: cough,fever,bodyaches Time Seen by Provider: 07/31/24 08:36 Source: patient, RN notes reviewed and old records reviewed Mode of arrival: ambulatory Limitations: no limitations History of Present Illness HPI Narrative: 59-year-old female presents to the [facility] with a dry cough since , 2 days. Reports low-grade fevers, body aches, congestion and earaches. Has taken Robitussin cough and cold. Reports exposure to COVID Treatments prior to arrival: cold medicine Related Data Home Medications ?Medication ?Instructions ?Recorded ?Confirmed ?Last Taken ?Type Bifidobacterium infantis 10.5 mg 10.5 mg PO DAILY 12/29/19 07/31/24 01/04/20 History (10 million cell) chewable tablet (Align (B.infantis)) brimonidine 0.2 % eye drops 1 drp RIGHT EYE BID 12/29/19 07/31/24 01/04/20 History dorzolamide 22.3 mg-timolol 6.8 1 drp EACH EYE BID 12/29/19 07/31/24 01/04/20 History mg/mL eye drops ketorolac 0.5 % eye drops 1 drp RIGHT EYE BID 12/29/19 07/31/24 01/04/20 History furosemide 40 mg tablet 40 mg PO DAILY 07/31/24 07/31/24 Unknown History lisdexamfetamine 40 mg capsule 40 mg PO DAILY 07/31/24 07/31/24 Unknown History omeprazole 20 mg capsule,delayed 20 mg PO DAILY 07/31/24 07/31/24 Unknown History release potassium chloride 20 mEq 20 meq PO DAILY 07/31/24 07/31/24 Unknown History tablet,extended release Allergies Allergy/AdvReac Type Severity Reaction Status Date / Time codeine Allergy Unknown Swelling Verified 07/31/24 08:17 of Lip/Tongue/Throat meperidine Allergy Unknown Seizure Verified 07/31/24 08:17 Review of Systems Review of Systems: All systems reviewed & are unremarkable except as noted in HPI and below Constitutional: Constitutional: Reports as per HPI ENT: Reports as per HPI Cardiovascular: Cardiovascular: Reports no additional cardiovascular complaints, Denies chest pain and Denies dyspnea Respiratory: Respiratory: Reports as per HPI, Denies chest congestion, Reports cough and Denies dyspnea Musculoskeletal: Musculoskeletal: Reports no additional musculoskeletal complaints Integumentary/Breasts: Skin/Breast: Reports system reviewed and no additional complaints, except as docu [facility] Past Medical History Medical History Bilateral nephrolithiasis Fibromyalgia Glaucoma Retinal detachment Irritable bowel syndrome Hypothyroid Migraine Surgical History Surgical History History of glaucoma tube shunt procedure History of detached retina repair Family History Family History Mother Sarcoma Glaucoma Diabetes mellitus Osteoporosis Father Glaucoma Cerebrovascular accident Hypothyroidism Allergies Social History Social History Social History: Ms. Shaw lives at home with her . She is independent in her ADLs. She works from home. Her PCP is Dr. Arvizu. She designates her as her surrogate decision maker and would like to be a full code. Smoking status: Never smoker Alcohol intake: never Substance use: never Substance use type: does not use Living arrangements: with family Spiritual care concerns: No Comments At the time of my signature, I reviewed and agree with the nursing past medical, surgical, social, and family history. There is no relevant family history pe rtinent to the patient complaint. Exam Const: General: cooperative, healthy appearing, comfortable, no acute distress, well developed, alert and well nourished Nutritional Appearance: well nourished Orientation/consciousness: patient oriented x3 Limitations: no limitations HENMT: Head: normal to inspection Ears: hearing grossly normal bilaterally, external ears normal, TM's normal bilaterally, EAC's normal, mastoids normal and no periauricular adenopathy Mouth: Yes Normal oral and palatal mucosa presen t, Yes lip normal and Yes tongue normal Throat: posterior oropharynx normal, uvula midline and no uvular edema Eyes: General: appearance normal, both eyes and all related structures Alignment and Position: alignment normal Neck: Neck: normal visual inspection, full ROM, no lymphadenopathy and no meningeal signs Chest: Chest palpation & inspection: normal inspection of the chest Resp: Effort & Inspection: normal respiratory effort and able to speak in complete sentences Auscultation: clear to auscultation bilaterally, no crackles, no rales, no rhonchi and no wheezes Cardio: Rate: regular rate Skin: General skin exam: normal color and no rashes or lesions noted Neuro: General: patient oriented x3, gait normal, moves all extremities and no meningeal signs Cognition (Neuro): normal cognition Speech: normal speech Gait exam (Neuro): Normal gait present Extrem: General: normal to inspection, full ROM, capillary refill normal and normal gait Psych: Appearance: grossly normal and well kempt Mental Status: mental status grossly normal Speech and movement: Normal speech and movement present and Clear speech present Affect: normal affect Attitude: cooperative Course Course Level of Care: Express Care Visit Vital Signs Vital signs: Vital Signs Temperature 100.1 F H 07/31/24 08:27 Pulse Rate 101 H 07/31/24 08:27 Respiratory Rate 16 07/31/24 08:27 Blood Pressure 133/70 07/31/24 08:27 Pulse Oximetry 99 07/31/24 08:27 Oxygen Delivery Room Air 07/31/24 08:27 Temperature 100.1 F H 07/31/24 08:27 Pulse Rate 101 H 07/31/24 08:27 Respiratory Rate 16 07/31/24 08:27 Blood Pressure 133/70 07/31/24 08:27 Pulse Oximetry 99 07/31/24 08:27 Oxygen Delivery Room Air 07/31/24 08:27 Reviewed MDM - URI/Sore Throat MDM Narrative Medical decision making narrative: Patient sitting comfortably in exam room. Nontoxic, vitals are low-grade fever, otherwise stable. Patient presents with 2 day history of URI symptoms. Flu and COVID are negative. No acute findings noted. Patient appropriate for outpatient treatment of viral URI Discharge instructions reviewed with patient, as well as provided in writing per nursing staff. The instructions also include specific and strict return/GO TO THE ER as well as f/u information. All questions have been answered, and the patient deny any further questions with discharge and discharge plan. Some parts of this dictation were generated by voice recognition software and may contain typographical and/or grammatical inaccuracies. Differential Diagnosis Differential diagnosis: Likely upper respiratory infection, otitis media, sinusitis, viral infection, bronchitis, influenza and pharyngitis Lab Data Labs: Lab Results 07/31/24 Range/Units 08:57 POC Influenza A Ag Negative (Negative) POC Influenza B Ag Negative (Negative) POC SARS CoV-2 Ag Negative (Negative) Reviewed Critical Care Time Critical Care Time Critical Care Time: No Discharge Plan Discharge Clinical Impression: Viral infection Upper respiratory infection Qualifiers: URI type: unspecified viral URI Qualified Code(s): J06.9 - Acute upper respiratory infection, unspecified Patient Disposition: Home, Self-Care Condition: Stable Instructions: Antibiotic Form, Upper Respiratory Infection (ED), Viral Syndrome (ED) Additional Instructions: Your rapid COVID test were negative Your rapid flu test was negative Your symptoms are likely due to a viral illness, which is not treated with antibiotics. Typically viral infections last 7-10 days, can linger for couple of weeks. It is very important to treat your symptoms. Drink plenty of water, Gatorade, Pedialyte, ice pops or Jell-O. -Alternate Tylenol and Motrin per package directions for fever or pain. You can alternate every 4 hours -Antihistamine medication such as Zyrtec/Claritin/Denise during the day can help improve symptoms. -doing daily nasal irrigations can help relieve pressure your sinuses. Things like a Neti pot -Use Flonase twice a day for 5 days then daily to help reduce the inflammation and dry up your sinuses. -You can also use Coricidin HBP or Mucinex. Be sure to drink plenty of water with this medication at least 8 ounces with every dose and it is important to drink 8 to 10 glasses of water per day. Water is a natural decongestant -Eat and drink things that are easy to swallow, like tea or soup, or popsicles. -Oral rinses such as: Salt water gargles and/or may use topical anesthetic (eg. Chloraseptic spray) or lozenges to relieve dryness or throat pain). -Frequent hand washing or hand project lead is one of the best ways to prevent spread of infection. -Using a vaporizer or humidifier at night will also help thin secretions and help with coughing up phlegm. -Follow up with primary care provider in 7-10 days if condition is not improving - For new or worsening symptoms go directly to the nearest ER Patient Language: Azeri Prescriptions: New benzonatate 100 mg capsule 100 mg PO TID PRN (Reason: cough) Qty: 10 0RF No Action furosemide 40 mg tablet 40 mg PO DAILY lisdexamfetamine 40 mg capsule 40 mg PO DAILY omeprazole 20 mg capsule,delayed release(DR/EC) 20 mg PO DAILY potassium chloride 20 mEq tablet extended release 20 meq PO DAILY ketorolac 0.5 % drops 1 drp RIGHT EYE BID brimonidine 0.2 % drops 1 drp RIGHTEYE BID dorzolamide-timolol 22.3-6.8 mg/mL drops 1 drp EACH EYE BID Align (B.infantis) 10.5 mg (10 million cell) Tablet,Chewable 10.5 mg PO DAILY Follow-up/Referrals: PHYSICIAN NOT ON STAFF,NONSTAFF [Primary Care Provider] - Stand Alone Forms: Work/School Release IP Time of Disposition: 09:03
[2024-07-31 08:27] VITALS: BP 133/70; PULSE 101; RESP 16; TEMP 37.8; O2SAT 99
[2024-07-31 08:59] LABS: EDCOVIDSCREEN Negative (Negative); EDINFLUASCREEN Negative (Negative); EDINFLUBSCREEN Negative (Negative)
== END 2024-07-31 09:07 | disposition home or self-care (01) ==
PROVIDERS: Emergency Provider Nurse Practitioner
DX: B34.9 Viral infection, unspecified (principal); J06.9 Acute upper respiratory infection, unspecified; Z20.822 Contact with and (suspected) exposure to COVID-19; M79.7 Fibromyalgia; H40.9 Unspecified glaucoma; E03.9 Hypothyroidism, unspecified
CPT/HCPCS: 87426; 87804; 99213; G0463